=== PATIENT | female | born 1995 | race African-American/Black ===

== ENCOUNTER 2017-04-12 18:27 | Emergency (ER) | payer OTHER ==
[~2017-04-12] VITALS: Ht 175.3 cm; Wt 104.3 kg
[~2017-04-12 18:27] MED LIST: CIPRO500 MG PO; CLARITIN-D 12 H1 TA1 PO; DIFLUCAN150 M1 PO; IBUPROFEN 800800 M1 PO; KEFLEX500 MG PO; TESSALON PERLE100 MG PO; ZOFRAN ODT4 MG PO
[2017-04-12 19:23] LABS: URINE BILIRUBIN NEGATIVE (Negative); URINE BLOOD 1+ (Negative); URINE COLOR YELLOW; URINE GLUCOSE-RANDOM* NEGATIVE (Negative); URINE KETONES NEGATIVE (Negative); URINE LEUKOCYTES-REFLEX NEGATIVE (Negative); URINE PROTEIN (DIPSTICK) 2+ (Negative); URINE UROBILINOGEN 0.2 E.U./dl (0.2-1.0)
[2017-04-12 19:24] LABS: HEMATOCRIT 35.6 % (37.0-47.0); HEMOGLOBIN 11.3 gm/dL (12.0-15.0); MCH 25.2 pg (26.0-34.0); MCHC 31.8 g/dL (28.0-37.0); MCV 79.2 fL (80.0-100.0); PLATELET COUNT 297 thou/uL (150-400); RBC 4.49 mil/uL (4.20-5.00); RDW 15.9 % (10.5-14.5); WBC 13.5 thou/uL (4.0-11.0)
[2017-04-12 19:25] LABS: MANUAL DIFF YES
[2017-04-12 19:28] LABS: CASTS None Seen /LPF (None Seen); SQUAMOUS 0-3 Few /LPF (0-3); URINE RBC 0-2 Rare /HPF (0-2); URINE WBC-REFLEX 0-5 Rare /HPF (0-5)
[2017-04-12 19:29] LABS: CRYSTALS None Seen /LPF (None Seen)
[2017-04-12 19:32] LABS: CALCIUM 8.7 mg/dL (8.5-10.1); CREATININE 1.1 mg/dL (0.6-1.0); POTASSIUM 4.1 mmol/L (3.5-5.1)
[2017-04-12 19:37] LABS: ALBUMIN 3.3 g/dL (3.4-5.0); TOTAL BILIRUBIN 0.2 mg/dL (<0.1-1.0); TOTAL PROTEIN 7.2 g/dL (6.4-8.2)
[2017-04-12 19:43] LABS: ABSOLUTE NEUTROPHILS 11.2 thou/uL (1.4-8.2); TOTAL CELL COUNT 100
[2017-04-12] MEDS ORDERED: IBUPROFEN 800800 M1 PO (22:06)
[2017-04-12] MEDS ORDERED: AMOXICILLIN 50500 M1 PO (22:06)
[2017-04-12 22:25] VITALS: BP 137/65
== END 2017-04-12 22:26 | disposition home or self-care (01) ==
LOC: ER 18:27
PROVIDERS: Emergency Medicine
DX: S02.31XA Fracture of orbital floor, right side, initial encounter for closed fracture (principal); S09.90XA Unspecified injury of head, initial encounter; Y04.2XXA Assault by strike against or bumped into by another person, initial encounter; Y93.89 Activity, other specified; Y92.89 Other specified places as the place of occurrence of the external cause; Y99.9 Unspecified external cause status

== ENCOUNTER 2017-07-06 12:32 | Emergency (ER) | payer OTHER ==
[~2017-07-06] VITALS: Ht 175.3 cm; Wt 104.3 kg
[~2017-07-06 12:32] MED LIST changes: +AMOXICILLIN 50500 M1 PO
[2017-07-06 12:35] VITALS: BP 120/63
[2017-07-06] MEDS ORDERED: NAPROSYN500 MG PO (12:58)
[2017-07-06] MEDS ORDERED: PENICILLIN VK500 M1 PO (12:58)
== END 2017-07-06 13:38 | disposition home or self-care (01) ==
LOC: ER 12:32
DX: K04.7 Periapical abscess without sinus (principal)

== ENCOUNTER 2018-02-22 22:27 | Emergency (ER) | payer OTHER ==
[~2018-02-22] VITALS: Ht 175.3 cm; Wt 117.9 kg
[~2018-02-22 22:27] MED LIST changes: +NAPROSYN500 MG PO; +PENICILLIN VK500 M1 PO
[2018-02-22] MEDS ORDERED: IBUPROFEN 200200 M1 PO (22:37)
[2018-02-22 22:40] LABS: URINE BILIRUBIN NEGATIVE (Negative); URINE BLOOD NEGATIVE (Negative); URINE CLARITY CLEAR; URINE COLOR YELLOW; URINE GLUCOSE-RANDOM* NEGATIVE (Negative); URINE KETONES NEGATIVE (Negative); URINE LEUKOCYTES-REFLEX NEGATIVE (Negative); URINE NITRITE-REFLEX NEGATIVE (Negative); URINE PROTEIN (DIPSTICK) NEGATIVE (Negative); URINE SPECIFIC GRAVITY <= 1.005 (1.005-1.035); URINE UROBILINOGEN 0.2 E.U./dl (0.2-1.0)
[2018-02-22 23:15] LABS: ABSOLUTE NEUTROPHILS 9.1 thou/uL (1.4-8.2); BASOPHILS 0.7 % (0.0-2.0); EOSINOPHILS 2.9 % (0.0-3.0); HEMATOCRIT 34.2 % (37.0-47.0); HEMOGLOBIN 10.9 gm/dL (12.0-15.0); LYMPHOCYTES 22.6 % (24.0-44.0); MCH 24.8 pg (26.0-34.0); MCV 77.7 fL (80.0-100.0); MONOCYTES 5.2 % (1.0-8.0); PLATELET COUNT 356 thou/uL (150-400); POLYS 68.6 % (36.0-66.0); RBC 4.41 mil/uL (4.20-5.00); RDW 16.3 % (10.5-14.5); WBC 13.3 thou/uL (4.0-11.0)
[2018-02-22 23:20] LABS: CALCIUM 8.8 mg/dL (8.5-10.1); POTASSIUM 3.7 mmol/L (3.5-5.1)
[2018-02-22 23:28] LABS: TOTAL BILIRUBIN 0.2 mg/dL (<0.1-1.0); TOTAL PROTEIN 7.4 g/dL (6.4-8.2)
[2018-02-23] MEDS ORDERED: CIPROFLOXACIN500 M1 PO (00:54)
[2018-02-23] MEDS ORDERED: TRAMADOL 50 MG50 MG PO (00:54)
[2018-02-23] MEDS ORDERED: FLAGYL500 MG PO (00:54)
[2018-02-23 00:56] VITALS: BP 113/43
== END 2018-02-23 01:12 | disposition home or self-care (01) ==
LOC: ER 22:27
PROVIDERS: Emergency Medicine
DX: K59.00 Constipation, unspecified (principal); D72.829 Elevated white blood cell count, unspecified; D50.9 Iron deficiency anemia, unspecified

== ENCOUNTER 2018-04-18 11:04 | Emergency (ER) | payer OTHER ==
[~2018-04-18] VITALS: Ht 177.8 cm; Wt 99.8 kg
[~2018-04-18 11:04] MED LIST changes: +CIPROFLOXACIN500 M1 PO; +FLAGYL500 MG PO; +IBUPROFEN 200200 M1 PO; +TRAMADOL 50 MG50 MG PO
[2018-04-18 11:30] LABS: URINE BILIRUBIN NEGATIVE (Negative); URINE BLOOD NEGATIVE (Negative); URINE CLARITY CLEAR; URINE COLOR YELLOW; URINE GLUCOSE-RANDOM* NEGATIVE (Negative); URINE KETONES NEGATIVE (Negative); URINE LEUKOCYTES-REFLEX NEGATIVE (Negative); URINE NITRITE-REFLEX NEGATIVE (Negative); URINE PROTEIN (DIPSTICK) NEGATIVE (Negative); URINE SPECIFIC GRAVITY >= 1.030 (1.005-1.035); URINE UROBILINOGEN 0.2 E.U./dl (0.2-1.0)
[2018-04-18 11:45] LABS: ABSOLUTE NEUTROPHILS 7.9 thou/uL (1.4-8.2); BASOPHILS 0.6 % (0.0-2.0); EOSINOPHILS 1.4 % (0.0-3.0); HEMATOCRIT 36.6 % (37.0-47.0); HEMOGLOBIN 11.8 gm/dL (12.0-15.0); LYMPHOCYTES 21.7 % (24.0-44.0); MCH 24.7 pg (26.0-34.0); MCHC 32.1 g/dL (28.0-37.0); MCV 76.9 fL (80.0-100.0); MONOCYTES 3.7 % (1.0-8.0); PLATELET COUNT 365 thou/uL (150-400); POLYS 72.6 % (36.0-66.0); RBC 4.75 mil/uL (4.20-5.00); RDW 15.9 % (10.5-14.5); WBC 10.9 thou/uL (4.0-11.0)
[2018-04-18 11:54] LABS: CREATININE 0.9 mg/dL (0.6-1.0); POTASSIUM 3.9 mmol/L (3.5-5.1)
[2018-04-18 12:00] LABS: ALBUMIN 3.5 g/dL (3.4-5.0); TOTAL BILIRUBIN 0.2 mg/dL (<0.1-1.0); TOTAL PROTEIN 7.9 g/dL (6.4-8.2)
[2018-04-18] MEDS ORDERED: VALTREX 500 MG500 M1 PER TUBE (12:53)
[2018-04-18 13:47] VITALS: BP 147/79
[2018-04-19 05:11] LABS: HSV 1 IgG 31.8 index (0.00-0.90); HSV 2 IgG 2.31 index (0.00-0.90)
[2018-04-19 14:07] LABS: NEISSERIA GONORRHEA-PCR Negative (Negative)
[2018-04-20 20:09] LABS: HSV 1 DNA Negative (Negative); HSV 2 DNA Positive (Negative)
== END 2018-04-18 13:49 | disposition home or self-care (01) ==
LOC: ER 11:04
PROVIDERS: Physician Assistant
DX: A60.00 Herpesviral infection of urogenital system, unspecified (principal); I10 Essential (primary) hypertension

== ENCOUNTER 2019-02-07 10:57 | Emergency (ER) | payer OTHER ==
[~2019-02-07 10:57] MED LIST changes: +VALTREX 500 MG500 M1 PER TUBE
== END 2019-02-07 12:23 | disposition left against medical advice (07) ==
LOC: ER 10:57
DX: R10.2 Pelvic and perineal pain (principal); Z53.21 Procedure and treatment not carried out due to patient leaving prior to being seen by health care provider

== ENCOUNTER 2020-07-14 22:30 | Emergency (ER) | payer OTHER ==
[~2020-07-14] VITALS: Ht 177.8 cm; Wt 123.4 kg
[2020-07-15] MEDS ORDERED: PERCOCET PO (00:37)
[2020-07-15] MEDS ORDERED: BACTRIM DS TAB1 EACH PO (00:37)
[2020-07-15 00:54] VITALS: BP 126/48
== END 2020-07-15 01:00 | disposition home or self-care (01) ==
LOC: ER 22:30
DX: L02.31 Cutaneous abscess of buttock (principal); I10 Essential (primary) hypertension

== ENCOUNTER 2021-08-13 11:54 | Emergency (ER) | payer OTHER ==
[~2021-08-13] VITALS: Ht 177.8 cm; Wt 93.4 kg
[~2021-08-13 11:54] MED LIST changes: +BACTRIM DS TAB1 EACH PO; +PERCOCET PO
[2021-08-13] MEDS ORDERED: M-NATAL PLUS T1 EACH PO (12:08)
[2021-08-13 12:46] LABS: HEMATOCRIT 33.1 % (37.0-47.0); HEMOGLOBIN 11.1 gm/dL (12.0-15.0); MCH 27.9 pg (26.0-34.0); MCHC 33.4 g/dL (28.0-37.0); MCV 83.5 fL (80.0-100.0); RBC 3.97 mil/uL (4.20-5.00); RDW 16.9 % (10.5-14.5); WBC 12.4 thou/uL (4.0-11.0)
[2021-08-13 14:45] VITALS: BP 131/79
== END 2021-08-13 14:45 | disposition home or self-care (01) ==
LOC: ER 11:54
PROVIDERS: Nurse Practitioner Family
DX: O20.0 Threatened abortion (principal); I10 Essential (primary) hypertension; Z3A.01 Less than 8 weeks gestation of pregnancy; Z98.890 Other specified postprocedural states; Z79.899 Other long term (current) drug therapy

== ENCOUNTER 2021-08-18 13:00 | Emergency (ER) | payer OTHER ==
[~2021-08-18] VITALS: Ht 177.8 cm; Wt 95.7 kg
[~2021-08-18 13:00] MED LIST changes: +M-NATAL PLUS T1 EACH PO
[2021-08-18 14:23] VITALS: BP 119/78
== END 2021-08-18 14:22 | disposition home or self-care (01) ==
LOC: ER 13:00
DX: O03.4 Incomplete spontaneous abortion without complication (principal); I10 Essential (primary) hypertension; Z98.890 Other specified postprocedural states; Z79.899 Other long term (current) drug therapy